=== PATIENT | female | born 1970 ===

== ENCOUNTER → 2017-02-19 | Outpatient (REF) | payer SELFPAY ==
[~2017-02-19] MED LIST: IBUP50TA PO; MOR10I IV; MORPHINE IR PO; MS CONTIN PO; ONDA4TAB PO; OXY10 PO; POTA2.5T7 PO; PRE20 PO; PRO25 PO; [UNRECOGNIZED DRUG - CODE] PO
[2017-02-19 11:08] LABS: PLATELET COUNT, AUTOMATED 260 K/uL (150-450)
== END ==
LOC: ZZSTITCHES 10:55
PROVIDERS: ATTEND Physician Assistant
DX: R35.0 Frequency of micturition (principal); R39.15 Urgency of urination; R19.7 Diarrhea, unspecified; R14.0 Abdominal distension (gaseous); R10.84 Generalized abdominal pain
CPT/HCPCS: 82040; 82247; 82310; 82374; 82435; 82565; 82947; 84075; 84132; 84155; 84295; 84443; 84450; 84460; 84520; 85025; 86304